=== PATIENT | female | born 1940 | race Caucasian/White ===

== ENCOUNTER 2017-06-26 10:16 | Inpatient (IN) | payer OTHER ==
[2017-06-26] MEDS ORDERED: NS 500 ML IV ONE (10:43)
[2017-06-26] MEDS ORDERED: ONDANSETRON 4 MG/2 ML VIAL IVP ONE (10:43)
[2017-06-26 11:05] LABS: % IMMATURE GRANULYOCYTES 0.2 % (0.0-1.1); ABSOLUTE IMMATURE GRANULOCYTES 0.01 10^3/uL (0.00-0.10); ADD DIFF? NO; ADD MORPH? NO; ADD SCAN? NO; ATYPICAL LYMPHOCYTE FLAG 0 (0-99); FRAGMENT RBC FLAG 0 (0-99); HEMATOCRIT 44.2 % (38.0-47.0); HEMOGLOBIN 14.6 g/dL (12.6-16.3); LEFT SHIFT FLG 0 (0-99); LIPEMIA HEMOLYSIS FLAG 80 (0-99); MEAN CELL HEMOGLOBIN 30.7 pg (27.9-34.1); MEAN CELL VOLUME 92.9 fL (81.5-99.8); MEAN PLATELET VOLUME 9.5 fL (8.7-11.7); PLATELET CLUMPS FLAG 0 (0-99); PLATELET COUNT 253 10^3/uL (150-400); RED BLOOD CELL COUNT 4.76 10^6/uL (4.18-5.33); RED CELL DISTRIBUTION WIDTH 13.6 % (11.5-15.2)
[2017-06-26 11:34] LABS: COLOR YELLOW; LEUKOCYTE ESTERASE,URINE 2+ (NEGATIVE); NITRITE,URINE NEGATIVE (NEGATIVE)
[2017-06-26 11:36] LABS: SPECIMEN HEMOLYSIS 335
[2017-06-26 11:37] LABS: BACTERIA TRACE /hpf (NONE SEEN); MUCUS TRACE /lpf (NONE-1+); WBC,URINE 25-50 /hpf (0-3)
[2017-06-26 12:20] LABS: ANION GAP 8 mEq/L (8-16); CALCIUM 8.7 mg/dL (8.5-10.4); CARBON DIOXIDE 25 mEq/l (22-31); CHLORIDE 103 mEq/L (97-110); CREATININE 0.7 mg/dL (0.6-1.0); GLOMERULAR FILTRATION RATE > 60; GLUCOSE 79 mg/dL (70-100); POTASSIUM 4.3 mEq/L (3.5-5.2); SODIUM 136 mEq/L (134-144)
--- NOTE | 2017-06-26 13:09 | CPEKG ---
Heart Rate: 73 RR Interval: 822 P-R Interval: 188 QRSD Interval: 88 QT Interval: 424 QTC Interval: 468 P [place]: 64 QRS [place]: -5 T Wave [place]: 85 EKG Severity - BORDERLINE ECG - EKG Impression: SINUS RHYTHM EKG Impression: BORDERLINE T ABNORMALITIES, LATERAL LEADS Electronically Signed By: Qi Paiz 26-Jun-2017 15:24:41
--- NOTE | 2017-06-26 13:12 | EDPHY ---
H & P Time Seen by Provider: 06/26/17 10:41 HPI/ROS: HPI Near fainting, weakness. 77-year-old female by ambulance from the [facility]. She has been treated for urinary tract infection was cefuroxime recently. She just finished her antibiotic prescription. She reports that since 8:00 a.m. this morning she has felt weak, fatigued and has had 3-4 episodes of near syncope associated with standing from the sitting position. She reports that she does feel slightly vertiginous with these episodes but describes them more as feeling lightheaded and like she is going to faint. No associated chest pain. No associated palpitations. She has not had a fever. She has had some nausea but no vomiting. She describes feeling intermittently very lightheaded. Denies headache. ROS: Constitutional: No fever, no chills. As above. Eyes: No discharge. No changes in vision. ENT: No sore throat. No nasal congestion or rhinorrhea. Respiratory: No cough. No shortness of breath. Cardiac: No chest pain, no palpitations. Gastrointestinal: No abdominal pain, no vomiting, no diarrhea. Genitourinary: No hematuria. No dysuria or increased frequency with urination. Musculoskeletal: No back pain. No neck pain. No myalgias or arthralgias. Skin: No rashes. Neurological: No headache. No focal weakness or altered sensation. As above. Past medical history: Glaucoma, depression, multiple urinary tract infections. Chronic urinary incontinence. Gerd, hypothyroid. Social history: Here by herself. No alcohol. Nonsmoker. Physical Exam: General Appearance: Alert, no distress. Moderately obese. This patient is responding to questions appropriately and in full sentences. This patient appears well-hydrated and well-nourished. Eyes: Pupils equal and round no pallor or injection. No lid edema, erythema or injection. Pulmonary: No retractions, lungs are clear to auscultation with good air movement bilaterally. No tachypnea. Cardiovascular: Regular rate and rhythm. No murmur. Gastrointestinal: Abdomen is soft and nontender, no masses, bowel sounds normal. No focal tenderness at McBurney's point. No Alfred sign. Neurological: Motor sensory function is grossly intact. Cranial nerves are normal. Cerebellar function is normal. Skin: Warm and dry, no rashes. Musculoskeletal: Neck is supple and nontender. Extremities are symmetrical. All joints range without pain or impingement. Psychiatric: No agitation. No depression. Database: EKG: EKG time is 1:07 p.m.; EKG shows a narrow complex normal sinus rhythm with a ventricular rate of 73. The SD, QRS, QT intervals are within normal limits. There are no ST-T wave changes indicative of ischemic or injury pattern. No evidence of right heart strain. Interpreted by me. Imaging: Procedures: Emergency department course: Vital signs reviewed and are normal. She was started on IV normal saline with 500 cc to be given over the next hour. EKG performed and reviewed by myself. Lab work including urinalysis obtained. 1:15 p.m., patient re-evaluated. She is resting comfortably at this time. Repeat neurologic Assessment is nonfocal. Waiting on results of troponin. 1:35 p.m., spoke with on-call hospitalist. Patient accepted for admission to Dr. Ojeda for near syncope. Results of urinalysis and history of recent urinary tract infection discussed. We will hold antibiotics at this time pending results of urine culture. The patient denies any urinary tract infection symptoms. Her remaining emergency department course under my care has been uneventful. She was admitted to the hospitalist service in stable condition. Differential Diagnosis: The differential diagnosis on this patient includes but is not limited to dehydration with near syncope, arrhythmia. A coronary syndrome, sepsis WPW, Brugada syndrome, hypertrophic cardiomyopathy unlikely. This represents a partial list of diagnoses considered. These considerations are based on history , physical exam, past history, reassessment and diagnostic testing. Constitutional: Initial Vital Signs Temperature (C) 37.1 C 06/26/17 10:21 Heart Rate 74 06/26/17 10:21 Respiratory Rate 16 06/26/17 10:21 Blood Pressure 129/83 H 06/26/17 10:21 O2 Sat (%) 95 06/26/17 10:21 O2 Delivery Mode Nasal Cannula O2 (L/minute) 1 Allergies/Adverse Reactions: Sulfa (Sulfonamide Antibiotics) Allergy (Severe, Verified 09/11/09 11:47) SWELLING, THROAT CLOSES, HIVES tramadol [Tramadol] Allergy (Severe, Verified 09/11/09 11:47) BREATHING DIFFICULTY Home Medications: Medication Instructions Recorded Pseudoephedrine HCl [Sudafed] 30 mg PO DAILY 09/11/09 ARIPiprazole [Abilify 2 mg (*)] 3 mg PO DAILY 06/26/17 Desipramine HCl [Norpramin 50 mg 200 mg PO DAILY 06/26/17 (*)] Estradiol [Estradiol 1 MG (*)] 0.5 mg PO HS 06/26/17 Herbals/Supplements -Info Only 1 ea PO DAILY 06/26/17 LORazepam [Ativan (*)] 0.25 mg PO BID PRN 06/26/17 Lansoprazole [Prevacid] 30 mg PO BID 06/26/17 Latanoprost 0.005% [Xalatan 0.005% 1 drops EACHEYE HS 06/26/17 (*)] Levothyroxine [Synthroid 100 mcg 100 mcg PO DAILY06 06/26/17 (*)] Propranolol HCl [Inderal 10mg (*)] 10 mg PO BID@09,12 06/26/17 Timolol 0.5% [TIMOPTIC 0.5% (*)] 1 drops EACHEYE BID 06/26/17 Vitamin B Complex [B Complex] 1 each PO DAILY 06/26/17 Medical Decision Making - Data Points Laboratory Results: Laboratory Results 06/26/17 10:56 06/26/17 11:50 Microbiology Results: MICROBIOLOGY 06/26/17 11:20 Unspecified Urine Culture - Preliminary Enterococcus Species Gram Neg Sanjeev Nonlactose Ferm. Two [place] Types Medications Given: Acetaminophen (Tylenol) 650 mg PO Q4HRS PRN PRN Reason: Pain, Mild/Fever, Can Take PO Stop: 12/23/17 13:51 Last Admin: 06/26/17 23:15 Dose: 650 mg Aripiprazole (Abilify) 3 mg PO DAILY [facility] Stop: 12/24/17 08:59 Last Admin: 06/27/17 09:10 Dose: 3 mg Desipramine HCl (Norpramin) 200 mg PO DAILY [facility] Stop: 12/24/17 08:59 Last Admin: 06/27/17 09:11 Dose: 200 mg Enoxaparin Sodium (Lovenox) 40 mg SC DAILY [facility] Stop: 12/24/17 08:59 Last Admin: 06/27/17 09:09 Dose: 40 mg Ceftriaxone Sodium/Dextrose (Rocephin 1 Gm (Premix)) 50 mls @ 100 mls/hr IV DAILY [facility] PRN Reason: Protocol Stop: 07/26/17 15:59 Last Admin: 06/27/17 09:08 Dose: 50 mls Latanoprost (Xalatan 0.005%) 1 drops EACHEYE HS [facility] Stop: 12/23/17 20:59 Last Admin: 06/26/17 21:07 Dose: 1 drop Levothyroxine Sodium (Synthroid) 100 mcg PO DAILY06 [facility] Stop: 12/24/17 05:59 Last Admin: 06/27/17 05:57 Dose: 100 mcg Meclizine HCl (Meclizine Hcl) 25 mg PO BID [facility] Stop: 12/23/17 15:36 Last Admin: 06/27/17 09:11 Dose: 25 mg Pantoprazole Sodium (Protonix) 40 mg PO BID [facility] Stop: 12/23/17 20:59 Last Admin: 06/27/17 09:10 Dose: 40 mg Propranolol HCl (Inderal) 10 mg PO BID@09,12 [facility]ER[facility] Stop: 12/24/17 08:59 Last Admin: 06/27/17 09:09 Dose: 10 mg Timolol Maleate (Timoptic 0.5%) 1 drops EACHEYE BID [facility] Stop: 12/23/17 20:59 Last Admin: 06/27/17 09:12 Dose: 1 drop Vitamin B Complex (Vitamin B Complex) 1 ea PO DAILY [facility] Stop: 12/24/17 08:59 Last Admin: 06/27/17 09:09 Dose: 1 ea Discontinued Medications Fluconazole (Diflucan) 150 mg PO ONCE ONE Stop: 06/27/17 05:27 Last Admin: 06/27/17 05:57 Dose: 150 mg Sodium Chloride (Ns) 500 mls @ 0 mls/hr IV EDNOW ONE; [place] PRN Reason: Protocol Stop: 06/26/17 10:44 Last Admin: 06/26/17 11:21 Dose: 500 mls Sodium Chloride (Ns) 1,000 mls @ 3,000 mls/hr IV ONCE ONE Stop: 06/26/17 14:11 Last Admin: 06/26/17 15:33 Dose: Not Given Ondansetron HCl (Zofran) 4 mg IVP EDNOW ONE Stop: 06/26/17 10:44 Last Admin: 06/26/17 11:21 Dose: 4 mg Departure - Departure Disposition: [facility] Inpatient Acute Clinical Impression: Near syncope
[2017-06-26] MEDS ORDERED: NS 1,000 ML IV ONE (13:52)
[2017-06-26] MEDS ORDERED: ONDANSETRON 4 MG/2 ML VIAL IVP PRN (13:52)
[2017-06-26] MEDS ORDERED: ONDANSETRON DISINTEGRATING 4 MG TAB PO PRN (13:52)
[2017-06-26] MEDS ORDERED: ACETAMINOPHEN 325 MG TAB PO PRN (13:52)
[2017-06-26] MEDS: MECLIZINE HCL 25 MG TAB PO SCH ×2 (16:27→20:58)
--- NOTE | 2017-06-26 16:27 | GHP ---
[f rep st] HISTORY AND PHYSICAL DATE OF ADMISSION: 06/26/2017 CHIEF COMPLAINT: Dizziness. HISTORY OF PRESENT ILLNESS: A 77-year-old female with multiple medical comorbidities, including report writer jordy urinary incontinence and recurrent urinary tract infections with a recent hospitalization at [facility] in the last 2 weeks with UTI. She completed a course of an oral cephalosporin. Reports she was not sure if she had symptoms prior to that hospitalization, but did take all the antibiotics. Contin ues to have ongoing urinary incontinence. Reports she was in her normal state of health the day prio r to presentation. Then awoke at 8 a.m. this morning with a sensation of dizziness that she describe s as the room spinning. She reports she has had dizziness episodes in the past, but not as severe as what she experienced today or as prolonged. She developed some nausea, no vomiting, and when the di zziness did not resolve after sitting back down, she decided to present to the emergency department. In the ED, patient is denying any palpitations, any vomiting, any chest pain, any shortness of breat h, any fevers, chills. Reports a mild left-sided headache. Believes she has had normal oral intake recently. Again, nausea, no vomiting. Denies any diarrhea. Denies any dysuria specifically, but vogel s severe chronic urinary incontinence which occasionally she will have burning with her urine, which she did have in the preceding 48 hours. Denies any hematuria. Has been at her [place] urologist's re cently for what sounds to be electrical stimulation for chronic incontinence. She is several session s into a 12-session course of this treatment modality. She denies any myalgias, arthralgias, or rash es. PAST MEDICAL HISTORY: 1. Chronic urinary incontinence. 2. Recurrent urinary tract infections. 3. Hypothyroidism. 4. Depression with active psychiatric care. 5. Glaucoma. 6. Gastroesophageal reflux disease. 7. Tremor. FAMILY HISTORY: Notable for diabetes in her father. SOCIAL HISTORY: Negative for tobacco, alcohol, or illicit drugs. REVIEW OF SYSTEMS: A 10-point review of systems is negative with the exception of that reported in t he HPI. PHYSICAL EXAMINATION: VITAL SIGNS: Blood pressure 139/81, heart rate 78, respiratory rate 18, 93% o n room air, 36.4. GENERAL: This is an obese female, in no acute distress. HEENT: Notable for dry mucous membranes. Eye exam is negative for any icterus. CARDIAC: Patient is regular rate and rhyth m. Heart sounds are distant secondary to body habitus. PULMONARY: Clear to auscultation bilaterall y. GASTROINTESTINAL: Positive bowel sounds. The patient is obese. MUSCULOSKELETAL: Negative for any lower extremity edema. SKIN: Negative for any rashes. NEUROLOGIC: She is alert and oriented x 3. Cranial nerves 2-12 are grossly intact. Patient does not have nystagmus on examination, but does describe a provocable quality to her dizziness when turning her head to the left. PSYCHIATRIC: Renu donald has a flat affect, is a little unusual on interview and examination. DATA: CBC and BMP are both normal. EKG, which I personally reviewed and interpreted, shows sinus rh ythm, normal axis, normal intervals, no acute ST-T changes. Urinalysis shows white blood cells, posi tive leukocyte esterase, and has positive bacteria. ASSESSMENT AND PLAN: This is a 77-year-old female presenting with dizziness. 1. Dizziness/presyncope. Etiology is not clear to me at this time. Certainly possible the patient has an untreated urinary tract infection causing her symptoms or slight dehydration not shown in her basic metabolic panel. Will send the patient's urine for culture and [facility] and any microbiologic data. We will give the patient a small fluid carlos nasir to rule out any possible hypovolemia and monitor the patient on telemetry overnight for any tachy or bradyarrhythmias contributing to her symptoms. My suspicion for a neurologic cause is low. Juanita ent does not have neurologic findings on exam; however, does share a distant history she thinks of [place]. Will order meclizine p.r.n. and follow the patient's clinical progress overnight. 2. Depression. Will continue her chronic psychiatric medications which she describes have not had d ose adjustments recently. 3. Resting tremor. Will continue her low-dose propranolol, low suspicion this is contributing. 4. Hypothyroidism. Have sent a TSH. Will continue her home dose of Synthroid. 5. Urinary incontinence, chronic with recurrent urinary tract infections. I suspect this patient is appropriate for consideration of daily antibiotic suppressive therapy for UTI going forward. She ca n discuss this topic with her urologist whom she will be seeing eminently for her next electrical davey atment. 6. Prophylaxis with Lovenox. DIET: Regular. DISPOSITION: I expect in less than 2 midnights unless the patient has complications related to suppo rtive care or we identify a cause for her syncope that requires additional workup. I discussed the c ase with the emergency room physician. The patient will be triaged to the PCU on telemetry for kelly jordan. /[id number]/MODL
[2017-06-26] MEDS: PANTOPRAZOLE SODIUM 40 MG TAB PO SCH (20:58)
[2017-06-26] MEDS: LATANOPROST 0.005% 2.5 ML OPHT DROPS EACHEYE SCH (21:07)
[2017-06-26] MEDS: TIMOLOL 0.5% 15 ML OPHT.BTL EACHEYE SCH (21:08)
[2017-06-27 05:16] LABS: % IMMATURE GRANULYOCYTES 0.3 % (0.0-1.1); ABSOLUTE IMMATURE GRANULOCYTES 0.02 10^3/uL (0.00-0.10); ADD DIFF? NO; ADD MORPH? NO; ADD SCAN? NO; ATYPICAL LYMPHOCYTE FLAG 0 (0-99); FRAGMENT RBC FLAG 0 (0-99); HEMOGLOBIN 12.8 g/dL (12.6-16.3); LEFT SHIFT FLG 0 (0-99); LIPEMIA HEMOLYSIS FLAG 80 (0-99); MEAN CELL HEMOGLOBIN 30.1 pg (27.9-34.1); MEAN CELL VOLUME 94.1 fL (81.5-99.8); MEAN PLATELET VOLUME 10.3 fL (8.7-11.7); PLATELET CLUMPS FLAG 0 (0-99); PLATELET COUNT 224 10^3/uL (150-400); RED BLOOD CELL COUNT 4.25 10^6/uL (4.18-5.33); RED CELL DISTRIBUTION WIDTH 13.9 % (11.5-15.2)
[2017-06-27] MEDS ORDERED: FLUCONAZOLE 150 MG TAB PO ONE (05:26)
[2017-06-27] MEDS ORDERED: LORazepam 0.5 MG TAB PO PRN (05:27)
[2017-06-27 05:30] LABS: ANION GAP 9 mEq/L (8-16); CALCIUM 8.7 mg/dL (8.5-10.4); CARBON DIOXIDE 24 mEq/l (22-31); CHLORIDE 103 mEq/L (97-110); CREATININE 0.7 mg/dL (0.6-1.0); GLOMERULAR FILTRATION RATE > 60; GLUCOSE 79 mg/dL (70-100); POTASSIUM 4.5 mEq/L (3.5-5.2); SODIUM 136 mEq/L (134-144)
[2017-06-27] MEDS: LEVOTHYROXINE 100 MCG TAB PO SCH (05:57)
[2017-06-27] MEDS ORDERED: Herbals/Supplements -Info Only PO SCH (09:00)
[2017-06-27] MEDS: VITAMIN B COMPLEX 1 EA CAP/TAB PO SCH (09:09)
[2017-06-27] MEDS: PROPRANOLOL HCL 10 MG TAB PO SCH ×2 (09:09→12:41)
[2017-06-27] MEDS: ENOXAPARIN 40 MG/0.4 ML SYR SC SCH (09:09)
[2017-06-27] MEDS: ARIPiprazole 2 MG TAB PO SCH (09:10)
[2017-06-27] MEDS: PANTOPRAZOLE SODIUM 40 MG TAB PO SCH ×2 (09:10→19:39)
[2017-06-27] MEDS: DESIPRAMINE HCL 50 MG TAB PO SCH (09:11)
[2017-06-27] MEDS: MECLIZINE HCL 25 MG TAB PO SCH ×2 (09:11→19:39)
[2017-06-27] MEDS: TIMOLOL 0.5% 15 ML OPHT.BTL EACHEYE SCH ×2 (09:12→21:04)
--- NOTE | 2017-06-27 13:07 | ASMTCMCOM ---
CM Note CM Note Notes: Reviewed chart and met w/pt. Pt lives at [facility]. She has friend who helps with some house hold tasks. PT cleared pt to dc home. Anticipate dc home indep when med stable. We may have to assist pt in figuring out ride home from hosp. May dc tomorrow. AZAR w/f. Date Signed: 06/27/2017 01:06 PM Electronically Signed By:Ophelia Eckert RN
--- NOTE | 2017-06-27 15:41 | HOSPPROG ---
Hospitalist Progress Note Assessment/Plan: # Acute UTI - Ucx from outside hospital reviewed - 06/15 she had 2 E.coli (one resistant to Levofloxacin) Urine cultures from overnight - enterococcus - sensitivities pending - switch from ceftriaxone to levofloxacin - received IVF overnight # Vertigo - pt reporting tinnitus in left ear - with previous history of Mnire 's disease lower suspicion for cardiac cause as telemetry and BP stable overnight - continue meclizine prn # Depression - Schizoaffective d/o - stable on home meds # Hypothyroid - cont synthroid # Chronic Urinary incontinence - pt under active urologic care at [place] - continue her chronic medication regimen # GERD - cont PPI # [place] - cont propranolol # proph - lovenox # diet - regular # dispo - > 2MN as need IV antibiotics until sensitivities are back and safe disposition meds can be chosen I have discussed the case with the RN - will start levofloxacin today - anticipate dc tomorrow back to [place] Subjective: dizziness improved - some tinnitus in left ear Objective: Vital Signs Temp Pulse Resp BP Pulse Ox 36.6 C 63 14 142/83 H 90 L 06/27/17 12:00 06/27/17 12:00 06/27/17 12:00 06/27/17 12:00 06/27/17 12:00 Laboratory Results 06/27/17 03:36 06/27/17 03:36 06/26/17 06/27/17 06/28/17 05:59 05:59 05:59 Intake Total 1660 Output Total 30 Balance 1630 - Physical Exam Constitutional: obese Eyes: anicteric sclera Ears, Nose, Mouth, Throat: moist mucous membranes Cardiovascular: regular rate and rhythym Respiratory: no respiratory distress Gastrointestinal: normoactive bowel sounds Genitourinary: no bladder fullness Skin: warm Musculoskeletal: No asymmetric calves Neurologic: AAOx3 Psychiatric: interacting appropriately Lymph, Heme, Immunologic: no cervical LAD ICD10 Worksheet Patient Problems: Problems Problem Status Onset Near syncope Acute
[2017-06-27] MEDS: LATANOPROST 0.005% 2.5 ML OPHT DROPS EACHEYE SCH (21:04)
[2017-06-28] MEDS: LEVOTHYROXINE 100 MCG TAB PO SCH (05:55)
[2017-06-28] MEDS ORDERED: FLU VACC QS 2017-18 (3YR+)/PF 0.5 ML SYR (FLUARIX QUAD) IM ONE ×2 (09:01→13:01)
[2017-06-28] MEDS: ENOXAPARIN 40 MG/0.4 ML SYR SC SCH (09:13)
[2017-06-28] MEDS: ARIPiprazole 2 MG TAB PO SCH (09:17)
[2017-06-28] MEDS: PANTOPRAZOLE SODIUM 40 MG TAB PO SCH (09:19)
[2017-06-28] MEDS: MECLIZINE HCL 25 MG TAB PO SCH (09:19)
[2017-06-28] MEDS: PROPRANOLOL HCL 10 MG TAB PO SCH ×2 (09:19→13:04)
[2017-06-28] MEDS: DESIPRAMINE HCL 50 MG TAB PO SCH (09:20)
[2017-06-28] MEDS: VITAMIN B COMPLEX 1 EA CAP/TAB PO SCH (09:20)
[2017-06-28] MEDS: TIMOLOL 0.5% 15 ML OPHT.BTL EACHEYE SCH (09:21)
[2017-06-28 11:26] VITALS: BP 144/76; PULSE 69; RESP 17; TEMP 97.3; O2SAT 94
--- NOTE | 2017-06-28 12:58 | PDIAF ---
- Diagnosis Diagnosis: UTI Code Status: Full Code - Medication Management Discharge Medications: Medications to Continue on Transfer Pseudoephedrine HCl [Sudafed 30mg (OTC)] 30 mg PO DAILY 09/11/09 [Last Taken ] ARIPiprazole [Abilify 2 mg (*)] 3 mg PO DAILY 06/26/17 [Last Taken 06/25/17] Desipramine HCl [Norpramin 50 mg (*)] 200 mg PO DAILY 06/26/17 [Last Taken 06/25] Estradiol [Estradiol 1 MG (*)] 0.5 mg PO HS 06/26/17 [Last Taken 06/25/17] Herbals/Supplements -Info Only 1 ea PO DAILY 06/26/17 [Last Taken Unknown] LORazepam [Ativan (*)] 0.25 mg PO BID PRN 06/26/17 [Last Taken Unknown] Lansoprazole [Prevacid] 30 mg PO BID 06/26/17 [Last Taken 06/25/17 21:00] Latanoprost 0.005% [Xalatan 0.005% (*)] 1 drops EACHEYE HS 06/26/17 [Last Taken 06/25/17] Levothyroxine [Synthroid 100 mcg (*)] 100 mcg PO DAILY06 06/26/17 [Last Taken ] Propranolol HCl [Inderal 10mg (*)] 10 mg PO BID@09,12 06/26/17 [Last Taken 06/25 12:00] Timolol 0.5% [TIMOPTIC 0.5% (*)] 1 drops EACHEYE BID 06/26/17 [Last Taken 21:00] Vitamin B Complex [B Complex] 1 each PO DAILY 06/26/17 [Last Taken Unknown] Acetaminophen [Tylenol 325mg (*)] 650 mg PO Q4HRS PRN tab 06/28/17 [Last Taken Unknown] Amoxicillin/Clavulanate Pot [Augmentin 875 MG TAB (*)] 875 mg PO BID #8 tab [Last Taken Unknown] Meclizine HCl [Meclizine HCl 25 mg (RX,OTC)] 25 mg PO BID #60 tab 06/28/17 [ Last Taken Unknown] Discharge Medications: Refer to the Discharge Home Medication list for PRN reason. - Orders Services needed: Registered Nurse, Physical Therapy Diet Recommendation: no restrictions on diet Diet Texture: Regular Texture Diet - Follow Up Care Current Providers and Referrals: Patient,NotPresent [Unknown] - As per Instructions
--- NOTE | 2017-06-28 13:51 | ASMTCMCOM ---
CM Note CM Note Notes: Pt dc'd home to [facility]. Cleared by PT. Met w/pt this am and she said her friend would be giving her ride home today. No other dc needs. Date Signed: 06/28/2017 01:51 PM Electronically Signed By:Ophelia Ecekrt RN
--- NOTE | 2017-06-28 13:52 | ASDISCHSUM ---
Discharge Information Plan Status:Home with No Needs Medically Cleared to Leave: Discharge Date:06/28/2017 01:25 PM CM D/C Disposition:Home, Routine, Self-Care ADT D/C Disposition:Home, Routine, Self-Care Projected Discharge Date:06/28/2017 01:25 PM Transportation at D/C: Discharge Delay Reason: Follow-Up Date:06/28/2017 01:25 PM Discharge Slot: Final Diagnosis: Placement Information Patient Contact Information Contact Name:HANG Relationship:Friend Address: Work Phone: City:[place] Alternate Phone: State/[place] Code:[place] Email: Financial Information Financial Class:Medicare Advantage Plans Primary Plan Desc:[employer] ADV[employer]AGE OUTPAT Primary Plan Number:[id number] Secondary Plan Desc: Secondary Plan Number: Assessment Information [facility] CM Progress Note CM Note CM Note Notes: Reviewed chart and met w/pt. Pt lives at [facility]. She has friend who helps with some house hold tasks. PT cleared pt to dc home. Anticipate dc home indep when med stable. We may have to assist pt in figuring out ride home from hosp. May dc tomorrow. CM w/f. Date Signed: 06/27/2017 01:06 PM Electronically Signed By:Ophelia Eckert RN [facility] CM Progress Note CM Note CM Note Notes: Pt dc'd home to [facility]. Cleared by PT. Met w/pt this am and she said her friend would be giving her ride home today. No other dc needs. Date Signed: 06/28/2017 01:51 PM Electronically Signed By:Ophelia Eckert RN Intervention Information Intervention Type:*KANG-Signed Date of Service:06/27/2017 09:21 AM Patient Type:Observation Staff Member:Ruba Valles Hours: Discipline: Severity: Comment:
--- NOTE | 2017-06-28 17:08 | GDS ---
[f rep st] DISCHARGE SUMMARY DISCHARGE DIAGNOSES: 1. Presyncope, suspected multifactorial. 2. Vertigo secondary to Meniere's. 3. Acute urinary tract infection. 4. Chronic depression. 5. Hypothyroidism. 6. Chronic urinary incontinence with recurrent infections. 7. Chronic tremor. 8. Gastroesophageal reflux disease. HISTORY OF PRESENT ILLNESS: This is a 77-year-old female with multiple medical comorbidities, who pr esents with weakness and presyncope. For details of patient's initial presentation, please see the h istory and physical dated 06/26/2017. CONSULTATIVE SERVICES: None. PROCEDURES: None. HOSPITAL COURSE BY ISSUE: 1. Presyncope. I believe the patient had more than 1 symptom leading to her complaints in the emerg ency department. First was lingering vertigo related to previous Meniere's on the left, as well as v olume depletion and acute urinary tract infection. Patient was treated for both and discharged for o utpatient followup. 2. Acute urinary tract infection. Patient had a hospitalization in the last 4 weeks at an outside acility for similar symptoms, was diagnosed with a urinary tract infection. Cultures were obtained f rom that hospitalization where the patient grew 2 strains of E coli, one pansensitive and the other r esistant to levofloxacin. She completed an oral course of cefuroxime. Urine cultures at [facility] showed 20,000 colony-forming units of a lactose fermenting gram-negative grace, which I s uspect was 1 of the 2 strains from that hospitalization, but we grew greater than 100,000 of enteroco ccus, ampicillin sensitive. Patient was discharged to complete a 7-day course with AugmentinJustin Montoya se of her frequent urinary tract infections, we have recommended that she see her urologist at the co mpletion of this round of antibiotics to discuss suppressive antibiotic therapy ongoing. 3. Meniere's on the left. Patient does have tinnitus and intermittent vertigo. She did respond bharti quately to meclizine. We continued this at disposition. 4. Depression. Patient is followed closely by psychiatric team in the outpatient setting. Her medi cation regimen was left unchanged. MEDICATIONS AT THE TIME OF DISPOSITION: Please reference the med rec printed on 06/28/2017. PENDING STUDIES: At the time of this dictation are none. FOLLOWUP APPOINTMENTS: 1. Include with her outpatient urologist in the next 1-2 weeks to discuss suppressive antibiotic the rapy. 2. With her outpatient psychiatric team for ongoing management of her depression. 3. With her primary care provider for ongoing management of her medical comorbidities. I spent greater than 30 minutes in the planning and coordination of this discharge. /[id number]/MODL
== END 2017-06-28 13:25 | disposition home or self-care (01) | DRG 690 ==
LOC: EDUNIT# → F2W 15:05 → OBSVTOIN 06-27 15:47
PROVIDERS: ADMIT Hospitalist; ATTEND Hospitalist
DX: N39.0 Urinary tract infection, site not specified (principal); H81.02 Meniere's disease, left ear; E86.1 Hypovolemia; N39.498 Other specified urinary incontinence; F32.9 Major depressive disorder, single episode, unspecified; E03.9 Hypothyroidism, unspecified; R25.1 Tremor, unspecified; K21.9 Gastro-esophageal reflux disease without esophagitis; Z23 Encounter for immunization; Z87.440 Personal history of urinary (tract) infections
CPT/HCPCS: 96374; 97116-GP; 97161-GP; 97165-GO; 97535-GO; G0008; G0378; J0696; J1650; J1956; J2405

== ENCOUNTER 2017-07-27 15:16 | Emergency (ER) | payer OTHER ==
[2017-07-27 15:20] VITALS: RESP 18; TEMP 97.9
--- NOTE | 2017-07-27 15:44 | EDPHY ---
H & P Time Seen by Provider: 07/27/17 15:20 HPI/ROS: CHIEF COMPLAINT: Mechanical fall, head injury HISTORY OF PRESENT ILLNESS: The patient is a 77-year-old female with a history of essential tremor and back issues who uses a cane that presents emergency department after having a mechanical fall. Patient states she stepped off an unseen step. This caused her to trip and fall into her 91-year-old friend who also fell. She struck the back of her head. She now has moderate posterior headache. She has mild neck pain. She did not lose consciousness. No nausea or vomiting. No focal weakness or numbness. No visual change. No other complaints. The patient denies back, chest, abdominal, pelvic, extremity pain. REVIEW OF SYSTEMS: My complete review of systems is negative except as mentioned in the HPI. Past Medical/Surgical History: Includes essential tremor, glaucoma, depression Social history: Patient in not use drugs or alcohol today Smoking Status: Former smoker Physical Exam: Vitals noted. Mildly hypertensive GENERAL: Well-appearing, in no acute distress, alert. HEENT: PERRLA, normal pharynx, no signs of dehydration. Patient has a posterior hematoma. There is a small abrasion with no laceration. NECK: No thyromegaly, no lymphadenopathy, supple. Patient has mild mid cervical tenderness to palpation. No step-off or deformity. RESPIRATORY: Clear to auscultation bilaterally, no rales, rhonchi or wheezing. CVS: Regular rate and rhythm, no rubs, murmurs, or gallops. ABDOMEN: Soft, nontender, nondistended, no organomegaly. BACK: Normal to inspection, no CVA tenderness. SKIN: Normal color, no rash, warm, dry. No pallor. EXTREMITIES: No pedal edema, no calf tenderness, no Homans sign or cords, no joint swelling. NEURO/PSYCH: Higher functions: Alert and Oriented x3. Normal speech and cognition. Normal mood and affect. Cranial nerves: Normal as tested. Cerebellar: Normal as tested. Good finger to nose, good [id number]. Peripheral exam: Normal motor exam. Normal sensation. Constitutional: Initial Vital Signs Temperature (C) 36.6 C 07/27/17 15:19 Heart Rate 71 07/27/17 15:19 Respiratory Rate 18 07/27/17 15:19 Blood Pressure 152/94 H 07/27/17 15:19 O2 Sat (%) 94 07/27/17 15:19 O2 Delivery Mode Room Air Allergies/Adverse Reactions: Sulfa (Sulfonamide Antibiotics) Allergy (Severe, Verified 09/11/09 11:47) SWELLING, THROAT CLOSES, HIVES tramadol [Tramadol] Allergy (Severe, Verified 09/11/09 11:47) BREATHING DIFFICULTY Home Medications: Medication Instructions Recorded Pseudoephedrine HCl [Sudafed 30mg 30 mg PO DAILY 09/11/09 (OTC)] ARIPiprazole [Abilify 2 mg (*)] 3 mg PO DAILY 06/26/17 Desipramine HCl [Norpramin 50 mg 200 mg PO DAILY 06/26/17 (*)] Estradiol [Estradiol 1 MG (*)] 0.5 mg PO HS 06/26/17 Herbals/Supplements -Info Only 1 ea PO DAILY 06/26/17 LORazepam [Ativan (*)] 0.25 mg PO BID PRN 06/26/17 Lansoprazole [Prevacid] 30 mg PO BID 06/26/17 Latanoprost 0.005% [Xalatan 0.005% 1 drops EACHEYE HS 06/26/17 (*)] Levothyroxine [Synthroid 100 mcg 100 mcg PO DAILY06 06/26/17 (*)] Propranolol HCl [Inderal 10mg (*)] 10 mg PO BID@09,12 06/26/17 Timolol 0.5% [TIMOPTIC 0.5% (*)] 1 drops EACHEYE BID 06/26/17 Vitamin B Complex [B Complex] 1 each PO DAILY 06/26/17 Acetaminophen [Tylenol 325mg (*)] 650 mg PO Q4HRS PRN tab 06/28/17 Amoxicillin/Clavulanate Pot 875 mg PO BID #8 tab 06/28/17 [Augmentin 875 MG TAB (*)] Meclizine HCl [Meclizine HCl 25 mg 25 mg PO BID #60 tab 06/28/17 (RX,OTC)] Medical Decision Making ED Course/Re-evaluation: In the emergency department I discussed possible etiologies with the patient. I answered all her questions. Due to the head hematoma, headache, neck pain and head CT and C-spine CT were ordered. Head CT/C-spine CT: Please refer the dictated report by Dr. Liz. There is a scalp hematoma but no other acute abnormality. 17 20: I rechecked the patient. She was doing well. No focal neurologic deficit. She is given warnings prior to leaving. She will return with worsening symptoms. Differential Diagnosis: My differential includes but is not limited to subarachnoid hemorrhage, subdural hematoma, epidural hematoma, scalp hematoma, contusion, spinal injury, disc herniation - Data Points Medications Given: Discontinued Medications Acetaminophen (Tylenol) 650 mg PO EDNOW ONE Stop: 07/27/17 16:23 Last Admin: 07/27/17 16:24 Dose: 650 mg Departure - Departure Disposition: Home, Routine, Self-Care Clinical Impression: Head contusion Qualifiers: Encounter type: initial encounter Contusion of head detail: scalp Qualified Code(s): S00.03XA - Contusion of scalp, initial encounter Cervical strain, acute Qualifiers: Encounter type: initial encounter Qualified Code(s): S16.1XXA - Strain of muscle, fascia and tendon at neck level, initial encounter Condition: Good Instructions: Cervical Strain (ED), Head Injury (ED) Additional Instructions: Your head CT and C-spine CTs were negative. Return with increasing headache, weakness, numbness, visual change, vomiting or any other concerns. Referrals: SORIN HUI [Primary Care Provider] - 3-4 days, if not improved
[2017-07-27 16:22] VITALS: BP 160/91; PULSE 67; O2SAT 97
[2017-07-27] MEDS ORDERED: ACETAMINOPHEN 325 MG TAB PO ONE (16:22)
== END 2017-07-27 17:49 | disposition home or self-care (01) ==
LOC: EDUNIT#
DX: S00.03XA Contusion of scalp, initial encounter (principal); S16.1XXA Strain of muscle, fascia and tendon at neck level, initial encounter; Z87.891 Personal history of nicotine dependence; W01.198A Fall on same level from slipping, tripping and stumbling with subsequent striking against other object, initial encounter

== ENCOUNTER 2017-10-12 09:15 | Emergency (ER) | payer OTHER ==
--- NOTE | 2017-10-12 09:28 | EDPHY ---
H & P Time Seen by Provider: 10/12/17 09:15 HPI/ROS: CHIEF COMPLAINT: "Feels like my catheter is falling out " HISTORY OF PRESENT ILLNESS: 77-year-old female had a Tang catheter placed at [facility] yesterday as she has had recurrent urinary tract infection this was recommended by her PCP. No urinary retention. She arrives by ambulance concerned that her catheter is falling out. Has been patent draining has normal. She also notes that she is not sure how to maintain the Tang catheter, does not like the feeling of the leg bag on her is not sure how to deal with the nighttime drainage. No abdominal pain. No fever no chills no back or flank pain. She is currently on prophylactic antibiotics. PRIMARY CARE PROVIDER: [facility] REVIEW OF SYSTEMS: A ten point review of systems was performed and is negative with the exception of the items mentioned in the HPI PAST MEDICAL & SURGICAL HISTORY: Recurrent UTI SOCIAL HISTORY: Nonsmoker PHYSICAL EXAM (Prior to examination, patient consented to physical exam, hands were washed and my usual and customary physical exam procedures followed) 1) GENERAL: Well-developed, well-nourished, alert and oriented. Appears to be in no acute distress. 2) HEAD: Normocephalic, atraumatic 3) HEENT: Pupils equal, round, reactive to light bilaterally. Sclera anicteric. 4) NECK: Full range of motion, no meningeal signs. 5) LUNGS: Clear auscultation bilaterally, no wheezes, no rhonchi, no retractions. 6) HEART: Regular rate and rhythm, no murmur, no heave, no gallop. 7) ABDOMEN: No guarding, no rebound, no focal tenderness, negative McBurney's, negative Alfred's, negative Rovsing's, negative peritoneal sign, 8) MUSCULOSKELETAL: Moving all extremities, no focal areas of tenderness, no obvious trauma. No peripheral edema or discoloration. 9) BACK: No CVA tenderness. 10) SKIN: No rash, no petechiae. 11) : Tang catheter in place, patent, draining, clear yellow. DIFFERENTIAL DIAGNOSIS: in no particular include but limited urinary retention , urinary tract infection, misplaced Tang catheter Smoking Status: Former smoker Allergies/Adverse Reactions: Sulfa (Sulfonamide Antibiotics) Allergy (Severe, Verified 09/11/09 11:47) SWELLING, THROAT CLOSES, HIVES tramadol [Tramadol] Allergy (Severe, Verified 09/11/09 11:47) BREATHING DIFFICULTY Home Medications: Medication Instructions Recorded Pseudoephedrine HCl [Sudafed 30mg 30 mg PO DAILY 09/11/09 (OTC)] ARIPiprazole [Abilify 2 mg (*)] 3 mg PO DAILY 06/26/17 Desipramine HCl [Norpramin 50 mg 200 mg PO DAILY 06/26/17 (*)] Estradiol [Estradiol 1 MG (*)] 0.5 mg PO HS 06/26/17 Herbals/Supplements -Info Only 1 ea PO DAILY 06/26/17 LORazepam [Ativan (*)] 0.25 mg PO BID PRN 06/26/17 Lansoprazole [Prevacid] 30 mg PO BID 06/26/17 Latanoprost 0.005% [Xalatan 0.005% 1 drops EACHEYE HS 06/26/17 (*)] Levothyroxine [Synthroid 100 mcg 100 mcg PO DAILY06 06/26/17 (*)] Propranolol HCl [Inderal 10mg (*)] 10 mg PO BID@09,12 06/26/17 Timolol 0.5% [TIMOPTIC 0.5% (*)] 1 drops EACHEYE BID 06/26/17 Vitamin B Complex [B Complex] 1 each PO DAILY 06/26/17 Acetaminophen [Tylenol 325mg (*)] 650 mg PO Q4HRS PRN tab 06/28/17 Amoxicillin/Clavulanate Pot 875 mg PO BID #8 tab 06/28/17 [Augmentin 875 MG TAB (*)] Meclizine HCl [Meclizine HCl 25 mg 25 mg PO BID #60 tab 06/28/17 (RX,OTC)] MDM/Departure - MDM ED Course/Re-evaluation: This patient bladder scanning performed revealing 3 cc of urine. The nursing staff has evaluated her Tang catheter, it is patent, is in correct placement, is not currently falling out. Nursing staff was also provided patient education on maintenance. Patient is already on antibiotics. Today is Saturday. Recommend follow up with her PCP on Saturday. Given usual and customary urinary tract and tang catheter precautions and instructions. Care of patient under supervision of secondary supervising physician Dr Cuevas . - Depart Disposition: Home, Routine, Self-Care Clinical Impression: Tang catheter in place Condition: Good Instructions: Tang Catheter Placement and Care (ED) Additional Instructions: Return to the ER if you develop fevers back pain if the Tang catheter not draining or any other symptoms that concern you. Referrals: [facility] [Provider Group] - 10/14/17 ()
[2017-10-12 09:37] VITALS: PULSE 86; RESP 17
[2017-10-12 10:47] VITALS: BP 142/78; TEMP 98.5; O2SAT 95
== END 2017-10-12 10:49 | disposition home or self-care (01) ==
DX: Z46.6 Encounter for fitting and adjustment of urinary device (principal); Z87.891 Personal history of nicotine dependence